=== PATIENT | male | born 1975 | race Caucasian/White ===

== ENCOUNTER 2017-12-02 18:14 | Emergency (ER) | payer MEDICAID, OTHER ==
[~2017-12-02] VITALS: Ht 177.8 cm; Wt 85.0 kg
[2017-12-02 18:36] VITALS: BP 116/77
== END 2017-12-02 19:50 | disposition home or self-care (01) ==
LOC: ED 18:57
DX: K60.0 Acute anal fissure (principal)
CPT/HCPCS: 99283

== ENCOUNTER → 2019-08-07 | Outpatient (CLI) | payer MEDICAID | END | disposition home or self-care (01) | LOC: CFH 07:09 | PROVIDERS: ATTEND Family Medicine | DX: I06.1 Rheumatic aortic insufficiency (principal); E78.5 Hyperlipidemia, unspecified | CPT/HCPCS: 93306 ==